=== PATIENT | male | born 1960 ===

== ENCOUNTER 2018-08-30 15:36 | Outpatient (CLI) | payer OTHER | END 2018-08-30 15:46 | disposition home or self-care (01) | LOC: LAB 15:36 | DX: R97.20 Elevated prostate specific antigen [PSA] (principal) ==

== ENCOUNTER 2022-05-08 06:10 | Outpatient (CLI) | payer OTHER | END 2022-05-08 06:11 | disposition home or self-care (01) | LOC: LAB 06:10 | PROVIDERS: ATTEND Internal Medicine Hematology & Oncology | DX: D50.8 Other iron deficiency anemias (principal); I10 Essential (primary) hypertension; E03.8 Other specified hypothyroidism; E63.1 Imbalance of constituents of food intake; R97.20 Elevated prostate specific antigen [PSA]; K64.8 Other hemorrhoids ==